=== PATIENT | male | born 1980 | race Caucasian/White ===

== ENCOUNTER → 2025-01-25 | Outpatient (CLI) | payer OTHER ==
[~2025-01-25] MED LIST: AMLO2.5T3 PO; ASPI81TA26 PO; ATOR80TA59 PO; IBUP200T46 PO
[2025-01-25 14:16] LABS: BLOOD UREA NITROGEN 16 MG/DL (9-23); CALCIUM LEVEL 9.6 MG/DL (8.5-10.1); CARBON DIOXIDE LEVEL 29 MMOL/L (20-31); CHLORIDE LEVEL 106 MMOL/L (98-107); CREATININE FOR GFR 0.79 MG/DL (0.70-1.30); GLOMERULAR FILTRATION RATE > 90.0 (>60); GLUCOSE, FASTING 97 MG/DL (60-100); POTASSIUM SERUM 4.6 MMOL/L (3.5-5.1); SODIUM LEVEL 143 MMOL/L (136-145)
[2025-01-25 14:22] LABS: HEMATOCRIT 42.5 % (42.0-52.0); MEAN CORPUSCULAR HEMOGLOBIN 29.2 pg (27.0-33.0); MEAN CORPUSCULAR HGB CONC 32.9 g/dl (32.0-36.5); MEAN CORPUSCULAR VOLUME 88.5 fl (80.0-96.0); PLATELET COUNT, AUTOMATED 272 10^3/uL (150-450)
== END ==
LOC: M PLALAB 09:58
PROVIDERS: ATTEND Plastic Surgery Surgery of the Hand
DX: D49.2 Neoplasm of unspecified behavior of bone, soft tissue, and skin (principal)

== ENCOUNTER 2025-01-31 08:51 | Day surgery (SDC) | payer BC ==
[~2025-01-31] VITALS: Ht 182.9 cm; Wt 100.2 kg
[2025-01-31] MEDS ORDERED: LR 1,000 ML IV SCH (09:25)
[2025-01-31] MEDS ORDERED: LIDOCAINE 2% 100MG/5ML SDV (FOR ANES.) As Ordered ONE (09:49)
[2025-01-31] MEDS ORDERED: MIDAZOLAM INJ 2MG/2ML VIAL As Ordered ONE (09:49)
[2025-01-31] MEDS ORDERED: propofoL 500 MG/50 ML VIAL As Ordered ONE (09:49)
[2025-01-31] MEDS ORDERED: KETOROLAC 30 MG/ML 1ML VIAL As Ordered ONE (09:49)
[2025-01-31] MEDS ORDERED: fentaNYL 100 MCG/2 ML INJECTION As Ordered ONE (09:50)
[2025-01-31] MEDS: ceFAZolin SOD 2 GM IV ONCE IV ONE (11:39)
[2025-01-31] MEDS: LIDOCAINE 2% W/EPINEPHRINE 20ML VIAL **PRES FREE As Ordered ONE (11:57)
[2025-01-31] MEDS: BACITRACIN OINTMENT 30GM TUBE As Ordered ONE (12:25)
[2025-01-31 13:28] VITALS: BP 141/81; TEMP 97.2; O2SAT 99
== END 2025-01-31 14:07 | disposition home or self-care (01) ==
LOC: M SDC 08:51
PROVIDERS: ATTEND Plastic Surgery Surgery of the Hand
DX: D22.39 Melanocytic nevi of other parts of face (principal); D22.5 Melanocytic nevi of trunk; L73.8 Other specified follicular disorders; I10 Essential (primary) hypertension; Z79.899 Other long term (current) drug therapy; Z79.82 Long term (current) use of aspirin
CPT/HCPCS: 11402; 11423; 11440; 12032; 12052; 70250; 88305; J0690; J1885; J2250; J3010